=== PATIENT | female | born 1980 | race Caucasian/White ===

== ENCOUNTER 2018-02-19 13:12 | Emergency (ER) | payer MEDICAID, OTHER ==
[2018-02-19 14:43] VITALS: BP 107/82
[2018-02-19] MEDS ORDERED: cefTRIAXone VIAL(*) 1,000 MG VIAL IM ONE (15:09)
[2018-02-19] MEDS ORDERED: Azithromycin TAB* 250 MG PO ONE ×2 (15:11)
--- NOTE | 2018-02-19 15:13 | UC ---
UC General HPI - HPI Summary HPI Summary: Pt presents with multiple complaints of detnal pain, dysuria, and possible STD exposure. - History of Current Complaint Chief Complaint: UCGeneralIllness Stated Complaint: TOOTH PAIN/URINARY COMP Time Seen by Provider: 02/19/18 14:51 Hx Obtained From: Patient Hx Last Menstrual Period: PERIODS ARE IRREG , HAS MIRENA IUD Onset/Duration: Gradual Onset, Lasting Days, Still Present Timing: Constant Onset Severity: Mild Current Severity: Mild Pain Intensity: 5 - Allergy/Home Medications Allergies/Adverse Reactions: Allergies Allergy/AdvReac Type Severity Reaction Status Date / Time pollen extracts Allergy Intermediate Congestion Verified 02/19/18 14:31 Home Medications: Home Medications G[facility] Herbal Diet Pill 02/19/18 [History] Levonorgestrel (Iud) [Mirena IUD] 20 mcg IU 02/19/18 [History] PMH/Surg Hx/FS Hx/Imm Hx Previously Healthy: Yes - 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 - Surgical History Surgical History: Yes Surgery Procedure, Year, and Place: 4 c sections, tonsillectomy, adenoidectomy, removal lymph nodes from neck - Family History Known Family History: Positive: Cardiac Disease - Social History Occupation: Employed Full-time Lives: With Family Alcohol Use: Rare Substance Use Type: None Smoking Status (MU): Heavy Every Day Tobacco Smoker Type: Cigarettes Amount Used/How Often: 1/2 PPD Have You Smoked in the Last Year: Yes Household Exposure Type: Cigarettes Review of Systems Constitutional: Negative Skin: Negative Eyes: Negative ENT: Dental Pain Respiratory: Negative Cardiovascular: Negative Gastrointestinal: Negative Genitourinary: Dysuria Motor: Negative Neurovascular: Negative Musculoskeletal: Negative Neurological: Negative Psychological: Negative Is Patient Immunocompromised?: No All Other Systems Reviewed And Are Negative: Yes Physical Exam Triage Information Reviewed: Yes Appearance: Well-Appearing Vital Signs: Initial Vital Signs Temp 98.6 F 02/19/18 14:33 Pulse 109 02/19/18 14:33 Resp 18 02/19/18 14:33 BP 107/82 02/19/18 14:33 Pulse Ox 99 02/19/18 14:33 Vital Signs Reviewed: Yes Eye Exam: Normal ENT Exam: Normal Dental: Positive: Percussion Tenderness @ - right upper molar, tooth was previously broken 5 years ago Neck exam: Normal Respiratory Exam: Normal Respiratory: Positive: Other: - power port palpable left upper anterior chest wall. Cardiovascular Exam: Normal Abdominal Exam: Normal Musculoskeletal Exam: Normal Neurological Exam: Normal Psychological Exam: Normal Skin Exam: Normal Course/Dx - Course Course Of Treatment: Pt states she is unable to give urine sample. She was given sample cup to take home and return to lab - Differential Dx - Multi-Symptom Differential Diagnoses: Urinary Tract Infection, Other - STD exposure, dental pain, dental infection Provider Diagnoses: dysuria. dental pain. dental fracture. STD exposure Discharge - Sign-Out/Discharge Documenting (check all that apply): Discharge/Admit/Transfer - Discharge Plan Condition: Stable Disposition: HOME Prescriptions: Amoxicillin PO (*) [Amoxicillin 500 MG CAP*] 500 mg PO Q12H #14 cap Ibuprofen TAB* [Motrin TAB* 800 MG] 800 mg PO Q8H PRN #30 tab PRN Reason: Pain Patient Education Materials: Safe Sex (ED), Dysuria (ED), Toothache (ED) Referrals: No Primary Care Phys,NOPCP [Primary Care Provider] - [facility] [place] [facility] REFERRAL [Outside] Mack Haney [Medical Doctor] - Additional Instructions: Please follow up with your PCP or return to clinic as needed. We have provided a referral to a PCP and to a surgeon to have your power port removed. - Billing Disposition and Condition Condition: STABLE Disposition: HOME
[2018-02-19] MEDS ORDERED: cefTRIAXone VIAL(*) 250 MG VIAL IM ONE (15:20)
[2018-02-19] MEDS ORDERED: Lidocaine 1% MPF* 2 ML VIAL ONE ×2 (15:25)
== END 2018-02-19 16:52 | disposition home or self-care (01) ==
LOC: UCCORT 13:12
DX: R30.0 Dysuria (principal); S02.5XXA Fracture of tooth (traumatic), initial encounter for closed fracture; Z20.2 Contact with and (suspected) exposure to infections with a predominantly sexual mode of transmission; F17.210 Nicotine dependence, cigarettes, uncomplicated; Z85.72 Personal history of non-Hodgkin lymphomas
CPT/HCPCS: 81003; 87086; 87491; 87591; 96372; 99212; A9270-GY; G0463; J0696